=== PATIENT | female | born 1990 | race Caucasian/White ===

== ENCOUNTER 2022-07-10 01:11 | Day surgery (SDC) | payer BC, SELFPAY ==
[2022-06-28 14:54] VITALS: BMI 41.1
--- NOTE | 2022-06-28 15:04 | PC.NURSE ---
Addendum entered by Rosaline Rey RN 06/29/22 15:55: HOLD ALL VITAMINS/SUPPLEMENTS 3 DAYS PRIOR TO SURGERY. Original Note: Report to the Outpatient Waiting Room, entrance under the green pavilion located off [facility], at 0600 on 07/10/22. Planned Procedure Time: 0730. Time changes happen often and if your time is changed the preop area will call you the afternoon before. - You and your visitor will be asked to self-screen and do not enter if you have any COVID symptoms. - Only one visitor is requested with a max of two and NO children visitors are allowed at this time. - The patient visitor may be requested to leave or wait in car when not with patient due to distancing restrictions. - A mask is optional within the hospital. Patients may have clear liquids (water, carbonated beverages, clear teas, apple juice) until 3 hours prior to surgery with a maximum of 20 ounces. - No food from midnight until time of surgery Take the following medications with a SIP of water the morning of surgery: N/A Medications to discontinue per physician Date to take last dose Please no make-up, nail salvadorean, hair products, perfume, deodorant, or body lotion/powder the day of surgery. No jewelry (including any body piercings) or valuables the day of surgery, leave them at home. Please take a shower or bath the night before, or the morning of, surgery with an antibacterial soap. Wear comfortable, loose fitting clothing. - Jewelry must be removed prior to entering the operating room. Rings and piercings that are not removed may be cut off. - The hospital will not accept responsibility for valuables. - Please leave all valuables, including medications, at home the day of surgery. If you are going home after surgery, a licensed hazardous materials tanker driver must drive you home. - NO public transportation without another adult if you receive anesthesia. - We recommend that an adult stay with you for 24 hours following discharge. - We also recommend that you do not drive, make important decision, drink alcoholic beverages, or take any drugs that were not prescribed by your health care provider for at least 24 hours after your discharge time. Follow any additional instructions given to you from your surgeon. If you or anyone in your household have experienced Covid symptoms in the past week, please notify your surgeon or the nurse liaison at the phone number below for possible testing. Telephone instructions given to patient and asked if any additional questions and then verbalized understanding. Patient advised to call surgeon office or pre surgery nurse liaison [phone] if any additional questions.
[2022-07-10] VITALS (8 sets, daily range): BP systolic 114–138; BP diastolic 75–95; PULSE 60–82; RESP 12–18; TEMP 36.8; O2SAT 96–100
[2022-07-10] MEDS: LACTATED RINGERS 1,000 ML 30 ML IV CONT ×2 (06:30→08:27)
--- NOTE | 2022-07-10 07:12 | WPDANESEPPF ---
Anes - Initial Pre Proc Eval Procedure: Operation Date: 07/10/22 07:30 Proposed Procedures p Laparoscopic Bilateral Salpingectomy, Hysteroscopy, Samantha Endometrial Ablation - Nohemi Doan MD Date/Time: 07/10/22 07:12 Surgeon: Nohemi Doan MD Pre Op Diagnosis: menorrhagia, sterilization Patient Data Age: 31 Gender: F Height: 1.6 m Weight: 105.23 kg Allergies Allergy/AdvReac Type Severity Reaction Status Date / Time No Known Allergies Allergy Verified 07/10/22 07:10 Home Medications Medication Instructions Recorded Confirmed Type Calcium-Vitamin D 1 cap PO DAILY 06/28/22 06/28/22 History Lacto no.21-Bifido no.7 50 billion 1 cap PO DAILY 06/28/22 06/28/22 History cell-inulin 50 mg capsule,delay rel (Fortify Probiotic 50 Plus) amino acids (Amino Acid capsule) 1 cap PO DAILY 06/28/22 06/28/22 History ascorbic acid (vitamin C) 1,000 mg 1 g PO DAILY 06/28/22 06/28/22 History tablet biotin 10,000 mcg capsule 1 mcg PO DAILY 06/28/22 06/28/22 History cholecalciferol (vitamin D3) 10 10 mcg PO DAILY 06/28/22 06/28/22 History mcg (400 unit) capsule (Vitamin D3) glucosamine 1,000 mg-D3 25 2 tablet PO DAILY 06/28/22 06/28/22 History mcg-hyaluronic acid 1.65 mg tablet omega 1-ovi-zbc-fish oil 900 1 cap PO DAILY 06/28/22 06/28/22 History mg-1,400 mg capsule,delayed release semaglutide 0.25 mg or 0.5 mg (2 0.25 mg subcut WEEKLY 06/28/22 06/28/22 History mg/1.5 mL) subcutaneous pen injector (Ozempic) vitamin B tiqodzs-F-Y-minerals 1 tablet PO DAILY 06/28/22 06/28/22 History tablet Patient hx anesthesia problems: none Family hx anesthesia problems: post op nausea/vomiting Results Review: All pre-operative results and documents have been reviewed as part of the pre-operative evaluation. [facility] Social History Social History Smoking packs per day: 0.5 Smoking cigarettes per day: 10.0 Years smoked: 15 Smoking pack-years: 7.50 Smoking status: Former smoker Tobacco type: e-cigarettes/vaping Second hand tobacco smoke exposure: No Alcohol intake: current Alcohol use details: 1 DRINK/ MONTH Substance use: never Last use: 06/22/2018 Living arrangements: with friend(s) Spiritual care concerns: No Anes - Eval Final PreProcedure Day of Procedure 07/10/22 07:12 Patient weight: morbidly obese Heart: regular rate and rhythm Lungs: clear to auscultation Airway: Mallampati scale class II Neurological: alert and oriented Last oral intake: >/= 8 hours Emergent: no Anesthetic plan: proceed Anesthesia type and monitoring: general ETT and standard monitoring Results Review: All pre-operative results and documents have been reviewed as part of the pre-operative evaluation. Informed Consent: The patient's anesthetic plan and its attendant risks and benefits were discussed with the patient/family/POA. Questions were solicited and answers provided to the satisfaction of the patient/family/POA.
--- NOTE | 2022-07-10 07:14 | WPDHPUPDATE1 ---
History and Physical Update Update Date/Time: 07/10/22 07:14 History and Physical has been reviewed, including an updated exam of the patient. There are NO changes in the patient's condition. Risks, benefits, and alternatives have been discussed and questions answered. Patient agrees to proceed with procedure.
--- NOTE | 2022-07-10 07:14 | PM.HPGS ---
History of Present Illness History of Present Illness Consent: Risks, benefits, and alternatives have been discussed and questions answered. Patient agrees to proceed with procedure. Chief complaint: menorrhagia, sterilization Narrative: Mary Higgins is a 31 year old female with menorrhagia requesting sterilization. Patient underwent hysteroscopy with endometrial biopsy which revealed benign endometrium. Options for managing her bleeding were reviewed. Patient has chosen to proceed with Samantha endometrial ablation. Risks infection, bleeding, and perforation. In addition the patient has completed her childbearing and requests permanent sterilization. Plan is to proceed with laparoscopic bilateral salpingectomies. Risks the above plus injury to internal organs was reviewed. The permanent and irreversible nature of a tubal ligation as well as the failure rate with increased ectopic should the tubal fail were reviewed in detail. The patient voices understanding and agrees to proceed with the plan. Review of Systems Musculoskeletal: Musculoskeletal: Reports back pain and Reports neck pain PMFSH Past Medical History Medical History (Updated 07/10/22 @ 07:19 by Nohemi Doan MD) Anxiety Depression Surgical History Surgical History (Updated 07/10/22 @ 07:18 by Nohemi Doan MD) History of x2 History of hysteroscopy Social History Social History Smoking packs per day: 0.5 Smoking cigarettes per day: 10.0 Years smoked: 15 Smoking pack-years: 7.50 Smoking status: Former smoker Tobacco type: e-cigarettes/vaping Second hand tobacco smoke exposure: No Alcohol intake: current Alcohol use details: 1 DRINK/ MONTH Substance use: never Last use: 06/22/2018 Living arrangements: with friend(s) Spiritual care concerns: No Meds Home Medications and Allergies Home Medications Medication Instructions Recorded Confirmed Type Calcium-Vitamin D 1 cap PO DAILY 06/28/22 06/28/22 History Lacto no.21-Bifido no.7 50 billion 1 cap PO DAILY 06/28/22 06/28/22 History cell-inulin 50 mg capsule,delay rel (Fortify Probiotic 50 Plus) amino acids (Amino Acid capsule) 1 cap PO DAILY 06/28/22 06/28/22 History ascorbic acid (vitamin C) 1,000 mg 1 g PO DAILY 06/28/22 06/28/22 History tablet biotin 10,000 mcg capsule 1 mcg PO DAILY 06/28/22 06/28/22 History cholecalciferol (vitamin D3) 10 10 mcg PO DAILY 06/28/22 06/28/22 History mcg (400 unit) capsule (Vitamin D3) glucosamine 1,000 mg-D3 25 2 tablet PO DAILY 06/28/22 06/28/22 History mcg-hyaluronic acid 1.65 mg tablet omega 5-jle-exi-fish oil 900 1 cap PO DAILY 06/28/22 06/28/22 History mg-1,400 mg capsule,delayed release semaglutide 0.25 mg or 0.5 mg (2 0.25 mg subcut WEEKLY 06/28/22 06/28/22 History mg/1.5 mL) subcutaneous pen injector (Ozempic) vitamin B ovjxjrf-A-C-minerals 1 tablet PO DAILY 06/28/22 06/28/22 History tablet Allergies Allergy/AdvReac Type Severity Reaction Status Date / Time No Known Allergies Allergy Verified 07/10/22 07:10 Exam Const: General: healthy appearing and alert Orientation/consciousness: patient oriented x3 Resp: Effort & Inspection: normal respiratory effort GI: GI Palp: Yes Soft to palpation, No Tenderness to palpation present (GI) and No Palpable mass present : External Female Exam: normal external appearance Speculum Exam - Vagina: normal appearance of the vagina and normal vaginal discharge Speculum Exam - Cervix: normal appearance of the cervix Bimanual exam- vagina & uterus: uterine size normal and consistency normal Bimanual Exam- Adnexa, other: normal adnexae and No adnexal tenderness Neuro: General: patient oriented x3 Assessment and Plan Assessment and plan (1) Menorrhagia: Code(s): N92.0 - Excessive and frequent menstruation with regular cycle Sta
[2022-07-10] MEDS: ACETAMINOPHEN 500 MG TABLET 1000 MG PO (07:15)
[2022-07-10] MEDS: KETOROLAC 15 MG/ML VIAL (*BKC) IV PUSH (07:16)
--- NOTE | 2022-07-10 08:27 | P.OP_ITS ---
Procedure Note - Detailed Date of Procedure 07/10/22 Pre-op Diagnosis menorrhagia, sterilization Post-op Diagnosis Same Procedure Performed laparoscopic bilateral salpingectomy with Samantha endometrial ablation Surgeon Nohemi Doan MD Anesthesia General Findings omental adhesions to the anterior abdominal wall; normal-appearing tubes and ovaries; irregular shape to the serosa uterus; uterus sounds to 8cm; normal- appearing endometrium Description of Procedure The patient is taken to the operating room and placed under general anesthesia in the dorsal lithotomy position. She was prepped and draped in the usual sterile fashion. Bladder was drained with a red rubber catheter. The bivalve speculum was placed in the vagina and the cervix grasped on the anterior lip with a tenaculum. The acorn manipulator was placed and the speculum removed. Attention was turned to the abdomen. A vertical skin incision was made in the base of the umbilicus. The abdomen is tented with towel clamps and the Veress needle placed. Opening patient pressure is 12mmHg and water drop test is normal. Patient pressure was taken [id number] with anesthesia was knowledge due to the high starting pressure and heavy abdominal wall. The Veress needle was then removed and the 5mm trocar placed the 5mm trocar was noted to be too short. The long 5mm trocar was placed and intra-abdominal placement confirmed with the laparoscope. The patient was placed in Trendelenburg and a 5mm port is placed to the left of midline 2cm above the symphysis pubis. A 3rd 5mm trocars placed to the right of midline 2cm above the symphysis pubis. The blunt probe was used to bring the tubes into the visual field. The right tube was grasped with a grasper and using the 5mm LigaSure the mesosalpinx is cauterized and cut. The tube was excised by cross-clamping the tube near the conua with the LigaSure, cauterizing and cutting. The identical procedure was performed on the opposite side. Good hemostasis is noted at both pedicles. The pneumoperitoneum was reduced and the trocars are removed. Skin incisions were closed using 4-0 nylon in an interrupted fashion. Attention was returned to the vagina where the bivalve speculum was replaced and the acorn manipulator removed. The uterus is sounded to 8cm. The cervix is serially dilated to an 8 Hegar. The diagnostic hysteroscope was placed. No abnormalities were noted and the hysteroscope was removed. Then ablation device is opened and placed. Cavity assessment passed on the 1st attempt. The ablation device is set at 5cm. The treatment cycle lasted the full 2minutes. The device is removed and the hysteroscope was replaced with a good ablation effect noted. Instruments are removed. Sponge, needle, and instrument counts are correct per the OR staff. The patient is taken to recovery in stable condition. Estimated Blood Loss 5 Drains No Packing No Pathology Yes ( Bilateral fallopian tubes) Complications No immediate complications Condition Stable Disposition PACU
[2022-07-10] MEDS: fentaNYL CITRATE INJ (*CRX) 100 MCG/2 ML VIAL 25 MCG IV PUSH ×2 (09:11→09:14)
== END 2022-07-10 10:29 | disposition home or self-care (01) ==
PROVIDERS: Visit Provider Obstetrics & Gynecology Gynecology
PROC: 0UDB8ZZ Extraction of Endometrium, Via Natural or Artificial Opening Endoscopic (ICD-10-PCS; CPT 58558; principal; 2022-07-10 07:30)
DX: N92.0 Excessive and frequent menstruation with regular cycle (principal); Z30.2 Encounter for sterilization; Z79.899 Other long term (current) drug therapy; Z87.891 Personal history of nicotine dependence; E66.01 Morbid (severe) obesity due to excess calories; Z68.41 Body mass index [BMI] 40.0-44.9, adult
CPT/HCPCS: 58661; 58563; 88302; A9270; J1100; J1200; J1885; J2250; J2405; J2704; J2710; J3010; J7030; J7120